=== PATIENT | female | born 1945 | race Caucasian/White ===

== ENCOUNTER → 2016-06-14 | Outpatient (CLI) | payer OTHER ==
[~2016-06-14] MED LIST: ACETAMINOPHEN 120 MG SUPP PR ONE; ACETAMINOPHEN 325 MG TAB ONE
== END ==
LOC: CIMAGING 10:22
PROVIDERS: ATTEND Internal Medicine
DX: Z12.31 Encounter for screening mammogram for malignant neoplasm of breast (principal)
CPT/HCPCS: G0202

== ENCOUNTER 2016-09-03 12:38 | Emergency (ER) | payer OTHER ==
--- NOTE | 2016-09-03 12:49 | EDPHY ---
H & P Time Seen by Provider: 09/03/16 12:48 HPI/ROS: CHIEF COMPLAINT: Migraine headache HISTORY OF PRESENT ILLNESS: The patient presents to the ED with complaints of a migraine headache that began 2 days ago. The patient stated that she took Maxalt which usually helps with her migraine headaches however it returned on Saturday morning. Since that time she has had a constant severe left temporal headache with some retro orbital extension. The patient denies any focal numbness or weakness. The patient has been battling with chronic neck pain for some time. She recently was evaluated by a neurologist and pain specialist for further management of this condition. The patient denies any anticoagulant use. She does have a history of diabetes and gastroparesis. REVIEW OF SYSTEMS: A comprehensive 10 point review of systems is otherwise negative aside from elements mentioned in the history of present illness. Source: Patient Exam Limitations: No limitations - Medical/Surgical History PMH: Past medical history: Migraine headache, chronic pain, diabetes, gastroparesis - Family History Significant Family History: No pertinent family hx - Social History Smoking Status: Never smoked - Physical Exam Exam: General Appearance: Alert, no distress Head: Normocephalic atraumatic Neck: Diffuse tenderness to palpation throughout the posterior paracervical muscles Eyes: Pupils equal and round no pallor or injection ENT, Mouth: Mucous membranes moist Respiratory: There are no retractions, lungs are clear to auscultation Cardiovascular: Regular rate and rhythm Gastrointestinal: Abdomen is soft and nontender, no masses, bowel sounds normal Neurological: Alert and oriented x4, 5/5 strength noted all 4 extremities, sensation intact to light touch, normal visual alvarado, NIH stroke scale equals 0 Skin: Warm and dry, no rashes Musculoskeletal: Neck is supple nontender Extremities: symmetrical, full range of motion Constitutional: Initial Vital Signs Temperature (C) 36.6 C 09/03/16 12:49 Heart Rate 95 09/03/16 12:49 Respiratory Rate 18 09/03/16 12:49 Blood Pressure 154/81 H 09/03/16 12:49 O2 Sat (%) 98 09/03/16 12:49 O2 Delivery Mode Room Air Allergies/Adverse Reactions: Opioids - Morphine Analogues Allergy (Verified 09/03/16 12:49) Home Medications: Medication Instructions Recorded AZOPT 1% (RX) 09/03/16 Albuterol 09/03/16 Ambien 09/03/16 Claritin 09/03/16 Fish Oil 09/03/16 GARLIC 09/03/16 Glipizide 09/03/16 Maxalt 10mg 09/03/16 Metformin HCl 09/03/16 Symbicort 160-4.5 Mcg Inh (*) 09/03/16 Medical Decision Making ED Course/Re-evaluation: The patient presents to the ED with complaints of an acute headache. The patient does have a history of migraines and states she typically gets left- sided headaches with her migraine syndrome. She reported that this headache was much more severe. Given her age and history of hypertension, she was taken for a noncontrast CT scan of her brain which demonstrated no evidence of an intracranial hemorrhage. She has had a history of chronic neck pain, prior history of neck fusion and given her headache a CT angiogram of the head and neck was ordered. There is no evidence of dissection, aneurysm or obvious thrombosis. The patient was noted to be neurologically intact upon arrival. She had no clinical evidence of meningitis. The patient had an IV established. She received IV Toradol, Reglan and and Benadryl. The patient underwent serial examinations in the ED by myself over a 2.5 hour period. At 2:30 a.m. she states she is feeling better. She continues to have a normal neurologic examination. The patient states that her headache has entirely resolved. She currently rates his as 0/10. At this point time I feel the patient presents with a severe migraine headache which has been treated with typical interventions. We have excluded intracranial hemorrhage, dissection and the patient has no clinical evidence of stroke or meningitis. The patient is comfortable being discharged home and follow up with her primary care provider. Differential Diagnosis: Differential diagnosis considered includes stroke, intracranial hemorrhage, TIA , carotid artery dissection, vertebral artery dissection, migraine headache, tension headache - Data Points Laboratory Results: Laboratory Results 09/03/16 12:50 09/03/16 12:50 09/03/16 09/03/16 09/03/16 12:50 12:50 12:50 WBC 8.76 10^3/uL 10^3/uL (3.80-9.50) RBC 5.22 10^6/uL 10^6/uL (4.18-5.33) Hgb 14.5 g/dL g/dL (12.6-16.3) POC Hgb 16.0 gm/dL H gm/dL (12.3-15.9) Hct 43.5 % % (38.0-47.0) POC Hct 47 % % (35.5-47.5) MCV 83.3 fL fL (81.5-99.8) MCH 27.8 pg L pg (27.9-34.1) MCHC 33.3 g/dL g/dL (32.4-36.7) RDW 15.7 % H % (11.5-15.2) Plt Count 240 10^3/uL 10^3/uL (150-400) MPV 9.5 fL fL (8.7-11.7) Neut % (Auto) 64.3 % % (39.3-74.2) Lymph % (Auto) 26.0 % % (15.0-45.0) Thomas % (Auto) 5.3 % % (4.5-13.0) Eos % (Auto) 3.9 % % (0.6-7.6) Baso % (Auto) 0.3 % % (0.3-1.7) Nucleat RBC Rel Count 0.0 % % (0.0-0.2) Absolute Neuts (auto) 5.63 10^3/uL 10^3/uL (1.70-6.50) Absolute Lymphs (auto) 2.28 10^3/uL 10^3/uL (1.00-3.00) Absolute Monos (auto) 0.46 10^3/uL 10^3/uL (0.30-0.80) Absolute Eos (auto) 0.34 10^3/uL 10^3/uL (0.03-0.40) Absolute Basos (auto) 0.03 10^3/uL 10^3/uL (0.02-0.10) Absolute Nucleated RBC 0.00 10^3/uL 10^3/uL (0-0.01) Immature Gran % 0.2 % % (0.0-1.1) Immature Gran # 0.02 10^3/uL 10^3/uL (0.00-0.10) POC Sodium 142 mEq/L mEq/L (134-144) Sodium 143 mEq/L mEq/L (134-144) POC Potassium 3.9 mEq/L mEq/L (3.3-5.0) Potassium 4.2 mEq/L mEq/L (3.5-5.2) POC Chloride 103 mEq/L mEq/L (96-108) Chloride 102 mEq/L mEq/L (97-110) Carbon Dioxide 25 mEq/l mEq/l (22-31) Anion Gap 16 mEq/L mEq/L (8-16) POC BUN 9 mg/dL mg/dL (7-23) BUN 9 mg/dL mg/dL (7-23) Creatinine 0.6 mg/dL mg/dL (0.6-1.0) POC Creatinine 0.6 mg/dL mg/dL (0.6-1.2) Estimated GFR > 60 Glucose 164 mg/dL H mg/dL (70-100) POC Glucose 168 mg/dL H mg/dL (70-100) Calcium 9.1 mg/dL mg/dL (8.5-10.4) Medications Given: Discontinued Medications Diphenhydramine HCl (Benadryl Injection) 25 mg IVP EDNOW ONE Stop: 09/03/16 12:57 Last Admin: 09/03/16 13:08 Dose: 25 mg Sodium Chloride (Ns) 1,000 mls @ 0 mls/hr IV ONCE ONE PRN Reason: Wide Open Stop: 09/03/16 13:14 Last Admin: 09/03/16 13:14 Dose: 1,000 mls Ketorolac Tromethamine (Toradol) 30 mg IVP EDNOW ONE Stop: 09/03/16 12:58 Last Admin: 09/03/16 13:10 Dose: 30 mg Metoclopramide HCl (Reglan Injection) 10 mg IVP EDNOW ONE Stop: 09/03/16 12:57 Last Admin: 09/03/16 13:05 Dose: 10 mg Point of Care Test Results: 09/03/16 12:50 POC Sodium 142 POC Potassium 3.9 POC Chloride 103 POC BUN 9 POC Creatinine 0.6 POC Glucose 168 H Departure - Departure Disposition: Home, Routine, Self-Care Clinical Impression: Migraine headache Condition: Good Instructions: Migraine Headache (ED) Additional Instructions: 1. Please follow-up with your primary care provider and neurologist as scheduled. 2. Please return to the ED immediately for severe headache, difficulty speaking , numbness, weakness, fever or other concerns. Referrals: Andrea Lim MD [Primary Care Provider] - As per Instructions
[2016-09-03] MEDS ORDERED: METOCLOPRAMIDE 10 MG/2 ML VIAL IVP ONE (12:56)
[2016-09-03] MEDS ORDERED: KETOROLAC 30 MG/1 ML SDV IVP ONE (12:57)
[2016-09-03 13:08] LABS: % IMMATURE GRANULYOCYTES 0.2 % (0.0-1.1); ABSOLUTE IMMATURE GRANULOCYTES 0.02 10^3/uL (0.00-0.10); ADD DIFF? NO; ADD MORPH? NO; ADD SCAN? NO; ATYPICAL LYMPHOCYTE FLAG 0 (0-99); FRAGMENT RBC FLAG 0 (0-99); HEMATOCRIT 43.5 % (38.0-47.0); HEMOGLOBIN 14.5 g/dL (12.6-16.3); LEFT SHIFT FLG 0 (0-99); LIPEMIA HEMOLYSIS FLAG 80 (0-99); MEAN CELL HEMOGLOBIN 27.8 pg (27.9-34.1); MEAN CELL HEMOGLOBIN CONCENTR. 33.3 g/dL (32.4-36.7); MEAN CELL VOLUME 83.3 fL (81.5-99.8); MEAN PLATELET VOLUME 9.5 fL (8.7-11.7); PLATELET CLUMPS FLAG 10 (0-99); PLATELET COUNT 240 10^3/uL (150-400); RED BLOOD CELL COUNT 5.22 10^6/uL (4.18-5.33); RED CELL DISTRIBUTION WIDTH 15.7 % (11.5-15.2)
[2016-09-03] MEDS ORDERED: IOPAMIDOL (ISOVUE 370) 100 ML BTL IV ONE (13:09)
[2016-09-03] MEDS ORDERED: NS 1,000 ML IV ONE (13:13)
[2016-09-03 13:24] LABS: ANION GAP 16 mEq/L (8-16); CALCIUM 9.1 mg/dL (8.5-10.4); CARBON DIOXIDE 25 mEq/l (22-31); CHLORIDE 102 mEq/L (97-110); CREATININE 0.6 mg/dL (0.6-1.0); GLOMERULAR FILTRATION RATE > 60; GLUCOSE 164 mg/dL (70-100); POTASSIUM 4.2 mEq/L (3.5-5.2); SODIUM 143 mEq/L (134-144)
[2016-09-03 13:56] VITALS: TEMP 97.9
[2016-09-03 14:35] VITALS: BP 129/83; PULSE 72; RESP 16; O2SAT 93
== END 2016-09-03 14:30 | disposition home or self-care (01) ==
LOC: CED 12:38
DX: G43.909 Migraine, unspecified, not intractable, without status migrainosus (principal); E11.9 Type 2 diabetes mellitus without complications; Z79.84 Long term (current) use of oral hypoglycemic drugs
CPT/HCPCS: 70450; 70496; 70498; 96361; 96374; 96375; 99285; J1200; J1885; J2765; Q9967; 80048-PO; 82947-QW; 85025-PO

== ENCOUNTER → 2017-05-21 | Outpatient (CLI) | payer OTHER | LOC: CIMAGING 13:27 | PROVIDERS: ATTEND Internal Medicine | DX: R05 Cough (principal); R91.8 Other nonspecific abnormal finding of lung field; I51.7 Cardiomegaly | CPT/HCPCS: 71046-PO ==

== ENCOUNTER → 2017-06-21 | Outpatient (CLI) | payer OTHER | LOC: CIMAGING 14:29 | PROVIDERS: ATTEND Internal Medicine | DX: J40 Bronchitis, not specified as acute or chronic (principal); J98.11 Atelectasis | CPT/HCPCS: 71046-PO ==

== ENCOUNTER → 2017-08-20 | Outpatient (CLI) | payer OTHER | LOC: CIMAGING 12:40 | PROVIDERS: ATTEND Internal Medicine | DX: Z12.31 Encounter for screening mammogram for malignant neoplasm of breast (principal) ==

== ENCOUNTER → 2017-10-02 | Outpatient (CLI) | payer OTHER ==
[~2017-10-02] MED LIST changes: -ACETAMINOPHEN 120 MG SUPP PR ONE; -ACETAMINOPHEN 325 MG TAB ONE; +IOPAMIDOL (ISOVUE-300) 100 ML BTL ONE
== END ==
LOC: CIMAGING 11:01
PROVIDERS: ATTEND Internal Medicine
DX: K57.90 Diverticulosis of intestine, part unspecified, without perforation or abscess without bleeding (principal); R16.0 Hepatomegaly, not elsewhere classified; K76.0 Fatty (change of) liver, not elsewhere classified; M48.061 Spinal stenosis, lumbar region without neurogenic claudication; Z90.49 Acquired absence of other specified parts of digestive tract; Z90.710 Acquired absence of both cervix and uterus
CPT/HCPCS: 74177; Q9967